=== PATIENT | male | born 1935 | race Caucasian/White ===

== ENCOUNTER 2016-12-24 10:15 | Emergency (ER) | payer MEDICARE, BC ==
[2016-12-24 11:38] VITALS: BP 103/59
--- NOTE | 2016-12-24 11:52 | UC ---
Throat Pain/Nasal Miller HPI - HPI Summary HPI Summary: Pt woke up this morning w/ a sore throat, nasal congestion, & sore throat. Pt was exposed to strep on Monday. [ End ] - History of Current Complaint Chief Complaint: UCGeneralIllness Stated Complaint: SORE THROAT, HEADACHE Time Seen by Provider: 12/24/16 11:43 Hx Obtained From: Patient Onset/Duration: Sudden Onset - Allergies/Home Medications Allergies/Adverse Reactions: Allergies Allergy/AdvReac Type Severity Reaction Status Date / Time No Known Allergies Allergy Verified 12/24/16 11:31 PMH/Surg Hx/FS Hx/Imm Hx Previously Healthy: Yes - Surgical History Surgical History: Yes Surgery Procedure, Year, and Place: prostatectomy, bowel resection - Family History Known Family History: Positive: None - Social History Occupation: Retired Lives: With Family Alcohol Use: None Substance Use Type: None Smoking Status (MU): Never Smoked Tobacco Review of Systems Constitutional: Negative Skin: Negative Eyes: Negative ENT: Negative, Sore Throat Respiratory: Negative Cardiovascular: Negative Gastrointestinal: Negative Genitourinary: Negative Motor: Negative Neurovascular: Negative Musculoskeletal: Negative Neurological: Negative Psychological: Negative All Other Systems Reviewed And Are Negative: Yes Physical Exam Triage Information Reviewed: Yes Appearance: Well-Appearing, No Pain Distress, Well-Nourished Vital Signs: Initial Vital Signs Temp 98.6 F 12/24/16 11:34 Pulse 69 12/24/16 11:34 Resp 16 12/24/16 11:34 BP 103/59 12/24/16 11:34 Pulse Ox 100 12/24/16 11:34 Vital Signs Reviewed: Yes Eye Exam: Normal ENT Exam: Normal ENT: Positive: Pharyngeal erythema. Negative: Tonsillar swelling, Tonsillar exudate Dental Exam: Normal Neck exam: Normal Neck: Positive: 1 Respiratory Exam: Normal Cardiovascular Exam: Normal Musculoskeletal Exam: Normal Neurological Exam: Normal Psychological Exam: Normal Skin Exam: Normal Throat Pain/Nasal Course/Dx - Differential Dx/Diagnosis Differential Diagnosis/HQI/PQRI: Pharyngitis, Tonsillitis, URI Provider Diagnoses: viral pharyngitis Discharge - Discharge Plan Condition: Good Disposition: HOME Patient Education Materials: Pharyngitis (ED) Referrals: Madi Sarmiento MD [Primary Care Provider] - 3 Days
== END 2016-12-24 12:19 | disposition home or self-care (01) ==
LOC: UCCORT 10:15
DX: J02.8 Acute pharyngitis due to other specified organisms (principal)
CPT/HCPCS: 87651; 99211; G0463

== ENCOUNTER 2022-11-27 08:59 | Inpatient (IN) ==
[2022-11-27] MEDS ORDERED: Magnesium Hydroxide LIQ 30 ML UDC PO PRN (14:23)
[2022-11-27] MEDS ORDERED: Senna TAB 8.6 mg TAB PO PRN (14:23)
[2022-11-27] MEDS: Enoxaparin 40 MG/0.4 ML SYR SUBCUT SCH (21:06)
[2022-11-27] MEDS: TETRACYCLINE 500 MG PO SCH (21:08)
[2022-11-28 06:37] LABS: Hematocrit 40.3 % (38-53); Hemoglobin 13.6 g/dL (13.2-16.3); Mean Corpuscular Hemoglobin 31.7 pg (27-33); Mean Corpuscular Hgb Conc 33.7 g/dL (31-36); Mean Platelet Volume 7.4 fL (7.5-11.2); Platelet Count 260 10^3/uL (150-450); Red Blood Count 4.29 10^6/uL (4.06-5.63); Red Cell Distribution Width 13.2 % (12-17); White Blood Count 11.5 10^3/uL (3.6-10.2)
[2022-11-28 06:57] LABS: ABS Basophils 0.1 10^3/uL (0.0-0.1); ABS Eosinophils 0.2 10^3/uL (0.0-0.5); ABS Monocytes 1.1 10^3/uL (0.0-1.1); ABS Neutrophils 8.1 10^3/uL (1.5-7.6); ABS Nucleated RBC 0.01 10^3/ul; Eosinophil % 1.8 %; Lymphocyte % 17.7 %; Nucleated Red Blood Cells % 0.1 /100 WBC (0.0-0.4)
[2022-11-28 07:02] LABS: Albumin 3.5 g/dL (3.2-5.2); Calcium 9.1 mg/dL (8.6-10.3); Total Bilirubin 0.9 mg/dL (0.2-1.0)
[2022-11-28 07:08] LABS: Albumin/Globulin Ratio 1.5 (1-3); Creatinine, Serum 1.16 mg/dL (0.67-1.17); Globulin 2.3 g/dL (2-4); Total Protein 5.8 g/dL (6.4-8.9); eGFR CKD-EPI 61.7 (>60)
[2022-11-28] MEDS: Aspirin EC 81 mg TAB.EC (enteric coated) PO SCH (08:12)
[2022-11-28] MEDS: Polyethylene Glycol 3350 17 GM PACKET PO SCH (08:12)
[2022-11-28] MEDS: TETRACYCLINE 500 MG PO SCH ×3 (08:17→21:11)
[2022-11-28] MEDS: Enoxaparin 40 MG/0.4 ML SYR SUBCUT SCH (21:11)
[2022-11-29] MEDS: Aspirin EC 81 mg TAB.EC (enteric coated) PO SCH (09:21)
[2022-11-29] MEDS: Polyethylene Glycol 3350 17 GM PACKET PO SCH (09:22)
[2022-11-29] MEDS: TETRACYCLINE 500 MG PO SCH ×3 (09:25→20:27)
[2022-11-29] MEDS ORDERED: Calcium Carb (TUMS) 500 mg CHEW TAB PO PRN (15:45)
[2022-11-29] MEDS: Enoxaparin 40 MG/0.4 ML SYR SUBCUT SCH (20:27)
[2022-11-30] MEDS: Ondansetron ODT 4 mg TAB 4 MG TAB PO PRN (07:32)
[2022-11-30] MEDS: TETRACYCLINE 500 MG PO SCH (13:04)
[2022-11-30] MEDS: Polyethylene Glycol 3350 17 GM PACKET PO SCH (13:06)
[2022-11-30] MEDS: Aspirin EC 81 mg TAB.EC (enteric coated) PO SCH (13:08)
[2022-11-30] MEDS: Enoxaparin 40 MG/0.4 ML SYR SUBCUT SCH (20:22)
[2022-12-01] MEDS: Ondansetron ODT 4 mg TAB 4 MG TAB PO PRN (07:29)
[2022-12-01] MEDS: Aspirin EC 81 mg TAB.EC (enteric coated) PO SCH (12:33)
[2022-12-01] MEDS: Polyethylene Glycol 3350 17 GM PACKET PO SCH (12:38)
[2022-12-01] MEDS: Enoxaparin 40 MG/0.4 ML SYR SUBCUT SCH (21:13)
[2022-12-02] MEDS: Polyethylene Glycol 3350 17 GM PACKET PO SCH (09:09)
[2022-12-02] MEDS: Aspirin EC 81 mg TAB.EC (enteric coated) PO SCH (09:09)
[2022-12-02] MEDS: Enoxaparin 40 MG/0.4 ML SYR SUBCUT SCH (20:34)
[2022-12-03] MEDS: Polyethylene Glycol 3350 17 GM PACKET PO SCH ×2 (08:53→08:56)
[2022-12-03] MEDS: Aspirin EC 81 mg TAB.EC (enteric coated) PO SCH (08:53)
[2022-12-03] MEDS: Enoxaparin 40 MG/0.4 ML SYR SUBCUT SCH (20:20)
[2022-12-04] MEDS: Aspirin EC 81 mg TAB.EC (enteric coated) PO SCH (07:23)
[2022-12-04] MEDS: Polyethylene Glycol 3350 17 GM PACKET PO SCH (12:11)
[2022-12-04] MEDS: Enoxaparin 40 MG/0.4 ML SYR SUBCUT SCH (20:12)
[2022-12-05 06:41] LABS: Hematocrit 40.7 % (38-53); Hemoglobin 13.6 g/dL (13.2-16.3); Mean Corpuscular Hemoglobin 31.4 pg (27-33); Mean Corpuscular Hgb Conc 33.4 g/dL (31-36); Mean Corpuscular Volume 94.1 fL (80-97); Mean Platelet Volume 7.7 fL (7.5-11.2); Platelet Count 271 10^3/uL (150-450); Red Blood Count 4.32 10^6/uL (4.06-5.63); Red Cell Distribution Width 13.2 % (12-17); White Blood Count 13.1 10^3/uL (3.6-10.2)
[2022-12-05] MEDS: Aspirin EC 81 mg TAB.EC (enteric coated) PO SCH (07:20)
[2022-12-05 07:48] LABS: Albumin 3.3 g/dL (3.2-5.2); Albumin/Globulin Ratio 1.6 (1-3); Calcium 8.9 mg/dL (8.6-10.3); Creatinine, Serum 1.25 mg/dL (0.67-1.17); Globulin 2.1 g/dL (2-4); Potassium 4.1 mmol/L (3.5-5.0); Total Bilirubin 0.5 mg/dL (0.2-1.0); Total Protein 5.4 g/dL (6.4-8.9); eGFR CKD-EPI 56.4 (>60)
[2022-12-05 08:25] LABS: ABS Basophils 0.1 10^3/uL (0.0-0.1); ABS Eosinophils 0.2 10^3/uL (0.0-0.5); ABS Lymphocytes 2.3 10^3/uL (1.0-4.8); ABS Monocytes 1.5 10^3/uL (0.0-1.1); ABS Neutrophils 8.9 10^3/uL (1.5-7.6); ABS Nucleated RBC 0.01 10^3/ul; Eosinophil % 1.7 %; Lymphocyte % 17.2 %; Nucleated Red Blood Cells % 0.1 /100 WBC (0.0-0.4)
[2022-12-05] MEDS: Polyethylene Glycol 3350 17 GM PACKET PO SCH (08:58)
[2022-12-05] MEDS: Enoxaparin 40 MG/0.4 ML SYR SUBCUT SCH (20:04)
[2022-12-06] MEDS: Aspirin EC 81 mg TAB.EC (enteric coated) PO SCH (08:11)
[2022-12-06] MEDS: Polyethylene Glycol 3350 17 GM PACKET PO SCH (08:13)
[2022-12-06] MEDS: Enoxaparin 40 MG/0.4 ML SYR SUBCUT SCH (20:26)
[2022-12-07] MEDS: Aspirin EC 81 mg TAB.EC (enteric coated) PO SCH (09:25)
[2022-12-07] MEDS: Polyethylene Glycol 3350 17 GM PACKET PO SCH (09:43)
[2022-12-07] MEDS: Enoxaparin 40 MG/0.4 ML SYR SUBCUT SCH (20:25)
[2022-12-08] MEDS: Aspirin EC 81 mg TAB.EC (enteric coated) PO SCH (09:21)
[2022-12-08] MEDS: Polyethylene Glycol 3350 17 GM PACKET PO SCH (09:21)
[2022-12-08] MEDS: Enoxaparin 40 MG/0.4 ML SYR SUBCUT SCH (19:52)
[2022-12-09 05:33] VITALS: BP 147/75
[2022-12-09] MEDS: Aspirin EC 81 mg TAB.EC (enteric coated) PO SCH (07:05)
[2022-12-09] MEDS: Polyethylene Glycol 3350 17 GM PACKET PO SCH (07:06)
== END 2022-12-09 12:03 | disposition home or self-care (01) | DRG 65 ==
LOC: PMRU 14:13
PROVIDERS: ADMIT Physical Medicine & Rehabilitation; ATTEND Physical Medicine & Rehabilitation

== ENCOUNTER 2023-07-23 10:58 | Inpatient (IN) ==
[2023-07-23] MEDS ORDERED: Iodixanol 320 (CONTRAST) 100 ML SDV IV ONE (11:29)
[2023-07-23 11:40] LABS: Hematocrit 36.6 % (38-53); Hemoglobin 12.1 g/dL (13.2-16.3); Mean Corpuscular Hemoglobin 32.3 pg (27-33); Mean Corpuscular Hgb Conc 33.2 g/dL (31-36); Mean Corpuscular Volume 97.5 fL (80-97); Mean Platelet Volume 8.5 fL (7.5-11.2); Platelet Count 165 10^3/uL (150-450); Red Blood Count 3.75 10^6/uL (4.06-5.63); Red Cell Distribution Width 13.5 % (12-17); White Blood Count 7.4 10^3/uL (3.6-10.2)
[2023-07-23 11:45] LABS: Activated Partial Thrombo Time 31.4 seconds (26.0-38.0); INR 1.02 (0.83-1.13)
[2023-07-23 12:00] LABS: Albumin 3.8 g/dL (3.2-5.2); Albumin/Globulin Ratio 1.9 (1-3); Creatinine, Serum 1.19 mg/dL (0.67-1.17); Direct Bilirubin 0.1 mg/dL (0.03-0.18); HDL Cholesterol 69.7 mg/dL; Indirect Bilirubin 0.4 mg/dL (0.3-1.0); Potassium 4.2 mmol/L (3.5-5.0); Total Bilirubin 0.5 mg/dL (0.2-1.0); Total Protein 5.8 g/dL (6.4-8.9); eGFR CKD-EPI 59.5 (>60)
[2023-07-23 12:04] LABS: ABS Monocytes 1.7 10^3/uL (0.0-1.1); ABS Neutrophils 4.6 10^3/uL (1.5-7.6); Eosinophil % 0.4 %; Lymphocyte % 13.3 %
[2023-07-23 13:20] LABS: High Sensitivity Troponin 1 Hr 18 pg/mL (<20)
[2023-07-23] MEDS ORDERED: Acetaminophen IV 1 GM/100ML 1,000 MG/100 ML BAG IV PRN (13:42)
[2023-07-23 14:07] LABS: Urine Appearance Clear; Urine Bilirubin Negative (Negative); Urine Blood 1+ (Negative); Urine Color Yellow; Urine Glucose Negative (Negative); Urine Ketones Negative (Negative); Urine Nitrite Negative (Negative); Urine Protein Negative (Negative); Urine Specific Gravity 1.039 (1.002-1.030); Urine Urobilinogen Negative (Negative)
[2023-07-23 14:36] LABS: Urine Bacteria Absent (Absent); Urine Red Blood Cell 3+(>10/hpf) (Absent); Urine White Blood Cell Absent (Absent)
[2023-07-23] MEDS: Aspirin EC 81 mg TAB.EC (enteric coated) PO SCH (15:52)
[2023-07-24 07:04] LABS: TSH Ultra Thyroid Stim Horm 0.45 mcIU/mL (0.34-5.60)
[2023-07-24] MEDS: Aspirin EC 81 mg TAB.EC (enteric coated) PO SCH (09:07)
[2023-07-24 11:40] LABS: Hematocrit 37.5 % (38-53); Hemoglobin 12.6 g/dL (13.2-16.3); Mean Corpuscular Hemoglobin 32.8 pg (27-33); Mean Corpuscular Hgb Conc 33.5 g/dL (31-36); Mean Platelet Volume 8.8 fL (7.5-11.2); Platelet Count 153 10^3/uL (150-450); Red Blood Count 3.83 10^6/uL (4.06-5.63); Red Cell Distribution Width 13.7 % (12-17); White Blood Count 6.2 10^3/uL (3.6-10.2)
[2023-07-24 12:18] LABS: ABS Basophils 0.1 10^3/uL (0.0-0.1); ABS Lymphocytes 1.1 10^3/uL (1.0-4.8); ABS Monocytes 0.9 10^3/uL (0.0-1.1); ABS Neutrophils 4.1 10^3/uL (1.5-7.6); ABS Nucleated RBC 0.02 10^3/ul; Lymphocyte % 17.3 %; Nucleated Red Blood Cells % 0.2 %/100WBC (0.0-0.8)
[2023-07-25 07:24] LABS: Calcium 8.9 mg/dL (8.6-10.3); Creatinine, Serum 0.94 mg/dL (0.67-1.17); eGFR CKD-EPI 78.9 (>60)
[2023-07-25] MEDS: Aspirin EC 81 mg TAB.EC (enteric coated) PO SCH (11:00)
[2023-07-26] MEDS ORDERED: Haloperidol 5 mg/ml SDV IV/IM 5 MG/ML AMP ONE (07:23)
[2023-07-26] MEDS ORDERED: Haloperidol 5 mg/ml SDV IV/IM 5 MG/ML AMP IM ONE (07:35)
[2023-07-26] MEDS: Aspirin EC 81 mg TAB.EC (enteric coated) PO SCH (11:38)
[2023-07-27] MEDS: Aspirin EC 81 mg TAB.EC (enteric coated) PO SCH (10:25)
[2023-07-27] MEDS ORDERED: Enoxaparin 40 MG/0.4 ML SYR SUBCUT SCH (14:00)
[2023-07-28] MEDS: Aspirin EC 81 mg TAB.EC (enteric coated) PO SCH (09:15)
[2023-07-28 14:34] VITALS: BP 134/76
== END 2023-07-28 17:15 | disposition home or self-care (01) | DRG 178 ==
LOC: ED 10:58 → EDHOLD 10:58 → MEDTELE 15:04 → SUATTDRO 07-26 11:55
PROVIDERS: ADMIT Internal Medicine; ATTEND Hospitalist

== ENCOUNTER 2024-08-14 18:15 | Observation (INO) ==
[2024-08-14 19:40] LABS: ABS Monocytes 0.6 10^3/uL (0.0-1.1); ABS Neutrophils 8.5 10^3/uL (1.5-7.6); ABS Nucleated RBC 0.01 10^3/ul; Hematocrit 37.7 % (38-53); Hemoglobin 12.8 g/dL (13.2-16.3); Lymphocyte % 9.8 %; Mean Corpuscular Hemoglobin 32.3 pg (27-33); Mean Corpuscular Volume 94.8 fL (80-97); Mean Platelet Volume 8.7 fL (7.5-11.2); Nucleated Red Blood Cells % 0.1 %/100WBC (0.0-0.8); Platelet Count 200 10^3/uL (150-450); Red Blood Count 3.98 10^6/uL (4.06-5.63); Red Cell Distribution Width 13.9 % (12-17); White Blood Count 10.1 10^3/uL (3.6-10.2)
[2024-08-14 19:59] LABS: INR 1.04 (0.85-1.14)
[2024-08-14 20:10] LABS: Albumin/Globulin Ratio 2.1 (1-3); Calcium 9.5 mg/dL (8.6-10.3); Creatinine, Serum 1.09 mg/dL (0.67-1.17); Globulin 1.9 g/dL (2-4); Magnesium 1.9 mg/dL (1.9-2.7); Potassium 4.4 mmol/L (3.5-5.0); Total Bilirubin 0.7 mg/dL (0.2-1.0); Total Protein 5.9 g/dL (6.4-8.9); eGFR CKD-EPI 65.7 (>60)
[2024-08-14 20:24] LABS: TSH Ultra Thyroid Stim Horm 1.26 mcIU/mL (0.34-5.60)
[2024-08-14 21:15] LABS: Urine Appearance Clear; Urine Bilirubin Negative (Negative); Urine Blood Trace (Negative); Urine Color Yellow; Urine Glucose Negative (Negative); Urine Ketones Negative (Negative); Urine Nitrite Negative (Negative); Urine Protein Trace (Negative); Urine Specific Gravity 1.025 (1.002-1.030); Urine Urobilinogen Negative (Negative)
[2024-08-14 21:18] LABS: Urine Bacteria Absent /HPF (Absent); Urine Red Blood Cell 2+(6-10/hpf) /HPF (0-Trace); Urine White Blood Cell Trace(0-5/hpf) /HPF (0-Trace)
[2024-08-14 22:17] LABS: High Sensitivity Troponin 1 Hr 6 pg/mL (<20)
[2024-08-15 12:30] LABS: Folate 15.47 ng/mL (5.90-24.80)
[2024-08-15 14:03] VITALS: BP 107/57
== END 2024-08-16 04:53 | disposition home or self-care (01) ==
LOC: ED 18:15 → EDHOLD 18:15 → SUATTDRO 21:34 → MEDTELE 23:36
PROVIDERS: ADMIT Internal Medicine; ATTEND Student in an Organized Health Care Education/Training Program